=== PATIENT | female | born 1940 | race Caucasian/White ===

== ENCOUNTER 2016-09-10 13:01 | Inpatient (IN) | payer MEDICARE, BC ==
[2016-09-10] MEDS ORDERED: ACETAMINOPHEN TAB 500 MG TAB PO STA (13:29)
[2016-09-10] MEDS ORDERED: IBUPROFEN IV 600 MG in SODIUM CHLORIDE 0.9% 250 ML IV STA (13:29)
[2016-09-10] MEDS ORDERED: IPRATROPIUM-ALBUTEROL 3 ML NEB INHALATION STA ×2 (13:31→16:20)
--- NOTE | 2016-09-10 13:35 | ED ---
General Adult HPI - General Stated complaint: Confusion, NADYA Time Seen by Provider: 09/10/16 13:05 Source: RN notes reviewed - History of Present Illness Initial comments: This is a 76-year-old female who started having some difficulty breathing and feeling weaker 2 days ago and has gotten progressively worse. According to EMS she has also been a little more confused than normal. Patient states she is a past smoker. Patient states she also has received her influenza shot this year. Patient denies any chest pain but she does states she is very short of breath. Patient denies any abdominal pain. Patient denies nausea vomiting or diarrhea. Patient has noticed some frequency with urination but no dysuria or hematuria. Patient denies any headache patient denies numbness weakness. Patient denies lightheadedness dizziness or near syncopal episode. The recent falls or trauma. - Related Data Home Medications Medication Instructions Recorded Confirmed Folic Acid 1 mg PO DAILY 12/24/13 09/10/16 Hydroxychloroquine Sulfate 200 mg PO BID 12/24/13 09/10/16 [Plaquenil] traZODone HCL [Desyrel] 50 mg PO HS PRN 12/24/13 09/10/16 Calcium Citrate/Vitamin D3 1 tab PO DAILY 01/14/14 09/10/16 [Calcium Citrate - Vit D3 Tab] Budesonide-Formot 160-4.5 Mcg 2 puff INHALATION RT-BID 05/20/14 09/10/16 [Symbicort 160-4.5 Mcg Inhaler] Abatacept/Maltose [Orencia] 500 mg IV QMONTH 12/23/14 09/10/16 Acetaminophen [Tylenol Arthritis] 650 mg PO TID PRN 08/16/16 09/10/16 Methotrexate Sodium (Pf) 25 mg SQ MO 08/16/16 09/10/16 [Methotrexate 50 mg/2 ml Vial] Zolpidem [Ambien] 5 mg PO HS PRN 08/16/16 09/10/16 Hydrocodone/Acetaminophen [[place] 1 tab PO Q6HR PRN 09/10/16 09/10/16 5-325] Meloxicam [Mobic] 15 mg PO DAILY 09/10/16 09/10/16 Omeprazole [PriLOSEC] 20 mg PO DAILY 09/10/16 09/10/16 Allergies Allergy/AdvReac Type Severity Reaction Status Date / Time No Known Allergies Allergy Verified 09/10/16 13:32 Review of Systems ROS Statement: Those systems with pertinent positive or pertinent negative responses have been documented in the HPI. ROS Other: All systems not noted in ROS Statement are negative. Past Medical History Past Medical History: COPD Additional Past Medical History / Comment(s): EMPHYSEMA/ARTHRITIS History of Any Multi-Drug Resistant Organisms: None Reported Past Surgical History: Bladder Surgery, Hysterectomy Additional Past Surgical History / Comment(s): Right cataract surgery. Past Anesthesia/Blood Transfusion Reactions: No Reported Reaction Past Psychological History: No Psychological Hx Reported Smoking Status: Current every day smoker Past Alcohol Use History: None Reported Past Drug Use History: None Reported General Exam - General Exam Comments Initial Comments: GENERAL: Patient is well-developed and well-nourished. Patient is nontoxic and well- hydrated and is in mild distress. ENT: Neck is soft and supple. No significant lymphadenopathy is noted. Oropharynx is clear. Moist mucous membranes. Neck has full range of motion without eliciting any pain. EYES: The sclera were anicteric and conjunctiva were pink and moist. Extraocular movements were intact and pupils were equal round and reactive to light. Eyelids were unremarkable. PULMONARY: Patient is extremely wheezing throughout and some diminished breath sounds in the left lung base with some rhonchi.. CARDIOVASCULAR: There is a regular rate and rhythm without any murmurs gallops or rubs. ABDOMEN: Soft and nontender with normal bowel sounds. No palpable organomegaly was noted. There is no palpable pulsatile mass. SKIN: Skin is clear with no lesions or rashes and otherwise unremarkable. NEUROLOGIC: Patient is alert and oriented 2. Cranial nerves II through XII are grossly intact. Motor and sensory are also intact. Normal speech, volume and content. Symmetrical smile. MUSCULOSKELETAL: Normal extremities with adequate strength and full range of motion. No lower extremity swelling or edema. No calf tenderness. LYMPHATICS: No significant lymphadenopathy is noted PSYCHIATRIC: Normal psychiatric evaluation. Course Vital Signs 09/10/16 09/10/16 09/10/16 13:05 13:30 13:45 Temperature 102.9 F H Pulse Rate 110 H 100 Respiratory 24 Rate Blood Pressure 153/71 O2 Sat by Pulse 88 L 89 L Oximetry 09/10/16 09/10/16 09/10/16 13:55 15:32 15:38 Temperature 102 F H Pulse Rate 103 H 94 Respiratory 22 Rate Blood Pressure 131/59 O2 Sat by Pulse 93 L 93 L Oximetry Medical Decision Making - Medical Decision Making EKG shows sinus tachycardia with an occasional PVC at 101 bpm. It was 126 dresses 82 QT interval is 330 QTC is 427. Patient's EKG shows no ST segment elevation or depression or T-wave abdomen is noted. Patient had multiple breathing treatments in the emergency department and she continued to wheeze show minimal improvement. Patient also with steroids emergency department started antibiotics. Patient's x-ray shows no obvious pneumonia however the patient still having difficulty breathing and has a fever so patient will be started on antibiotics. I spoke with Dr. Leos he agreed to admit the patient admitted the patient to consult pulmonology I continued albuterol treatments upstairs and that continued steroid treatments upstairs. - Lab Data Result diagrams: 09/10/16 13:21 09/10/16 13:21 Lab Results 09/10/16 09/10/16 09/10/16 Range/Units 13:20 13:21 13:21 WBC 10.6 (3.8-10.6) k/uL RBC 4.10 (3.80-5.40) m/uL Hgb 13.9 (11.4-16.0) gm/dL Hct 42.1 (34.0-46.0) % MCV 102.7 H (80.0-100.0) fL MCH 33.9 (25.0-35.0) pg MCHC 33.0 (31.0-37.0) g/dL RDW 14.9 (11.5-15.5) % Plt Count 182 (150-450) k/uL Neutrophils % 91 % Lymphocytes % 5 % Monocytes % 3 % Eosinophils % 1 % Basophils % 0 % Neutrophils # 9.6 H (1.3-7.7) k/uL Lymphocytes # 0.6 L (1.0-4.8) k/uL Monocytes # 0.3 (0-1.0) k/uL Eosinophils # 0.1 (0-0.7) k/uL Basophils # 0.0 (0-0.2) k/uL Macrocytosis Slight PT (9.0-12.0) sec INR (<1.1) APTT (22.0-30.0) sec Sodium (137-145) mmol/L Potassium (3.5-5.1) mmol/L Chloride (98-107) mmol/L Carbon Dioxide (22-30) mmol/L Anion Gap mmol/L BUN (7-17) mg/dL Creatinine (0.52-1.04) mg/dL Est GFR (MDRD) Af Amer (>60 ml/min/1.73 sqM) Est GFR (MDRD) Non-Af (>60 ml/min/1.73 sqM) Glucose (74-99) mg/dL Plasma Lactic Acid Wilberto (0.7-2.0) mmol/L Calcium (8.4-10.2) mg/dL Total Bilirubin (0.2-1.3) mg/dL AST (14-36) U/L ALT (9-52) U/L Alkaline Phosphatase (38-126) U/L Total Creatine Kinase 65 (30-135) U/L CK-MB (CK-2) 0.8 (0.0-2.4) ng/mL CK-MB (CK-2) Rel Index 1.2 Troponin I <0.012 (0.000-0.034) ng/mL Total Protein (6.3-8.2) g/dL Albumin (3.5-5.0) g/dL Cortisol ug/dL Urine Color Light Yellow Urine Appearance Clear (Clear) Urine pH 8.0 (5.0-8.0) Ur Specific [place] 1.011 (1.001-1.035) Urine Protein Negative (Negative) Urine Glucose (UA) Negative (Negative) Urine Ketones Negative (Negative) Urine Blood Negative (Negative) Urine Nitrate Negative (Negative) Urine Bilirubin Negative (Negative) Urine Urobilinogen <2.0 (<2.0) mg/dL Ur Leukocyte Esterase Negative (Negative) Influenza Type A RNA (Not Detectd) Influenza Type B (PCR) (Not Detectd) 09/10/16 09/10/16 09/10/16 Range/Units 13:21 13:21 13:21 WBC (3.8-10.6) k/uL RBC (3.80-5.40) m/uL Hgb (11.4-16.0) gm/dL Hct (34.0-46.0) % MCV (80.0-100.0) fL MCH (25.0-35.0) pg MCHC (31.0-37.0) g/dL RDW (11.5-15.5) % Plt Count (150-450) k/uL Neutrophils % % Lymphocytes % % Monocytes % % Eosinophils % % Basophils % % Neutrophils # (1.3-7.7) k/uL Lymphocytes # (1.0-4.8) k/uL Monocytes # (0-1.0) k/uL Eosinophils # (0-0.7) k/uL Basophils # (0-0.2) k/uL Macrocytosis PT 10.3 (9.0-12.0) sec INR 1.0 (<1.1) APTT 19.8 L (22.0-30.0) sec Sodium 136 L (137-145) mmol/L Potassium 4.4 (3.5-5.1) mmol/L Chloride 101 (98-107) mmol/L Carbon Dioxide 28 (22-30) mmol/L Anion Gap 7 mmol/L BUN 26 H (7-17) mg/dL Creatinine 0.70 (0.52-1.04) mg/dL Est GFR (MDRD) Af Amer >60 (>60 ml/min/1.73 sqM) Est GFR (MDRD) Non-Af >60 (>60 ml/min/1.73 sqM) Glucose 78 (74-99) mg/dL Plasma Lactic Acid Wilberto (0.7-2.0) mmol/L Calcium 8.8 (8.4-10.2) mg/dL Total Bilirubin 0.6 (0.2-1.3) mg/dL AST 33 (14-36) U/L ALT 36 (9-52) U/L Alkaline Phosphatase 47 (38-126) U/L Total Creatine Kinase (30-135) U/L CK-MB (CK-2) (0.0-2.4) ng/mL CK-MB (CK-2) Rel Index Troponin I (0.000-0.034) ng/mL Total Protein 6.1 L (6.3-8.2) g/dL Albumin 3.3 L (3.5-5.0) g/dL Cortisol 13 ug/dL Urine Color Urine Appearance (Clear) Urine pH (5.0-8.0) Ur Specific [place] (1.001-1.035) Urine Protein (Negative) Urine Glucose (UA) (Negative) Urine Ketones (Negative) Urine Blood (Negative) Urine Nitrate (Negative) Urine Bilirubin (Negative) Urine Urobilinogen (<2.0) mg/dL Ur Leukocyte Esterase (Negative) Influenza Type A RNA Not Detected (Not Detectd) Influenza Type B (PCR) Not Detected (Not Detectd) 09/10/16 Range/Units 14:00 WBC (3.8-10.6) k/uL RBC (3.80-5.40) m/uL Hgb (11.4-16.0) gm/dL Hct (34.0-46.0) % MCV (80.0-100.0) fL MCH (25.0-35.0) pg MCHC (31.0-37.0) g/dL RDW (11.5-15.5) % Plt Count (150-450) k/uL Neutrophils % % Lymphocytes % % Monocytes % % Eosinophils % % Basophils % % Neutrophils # (1.3-7.7) k/uL Lymphocytes # (1.0-4.8) k/uL Monocytes # (0-1.0) k/uL Eosinophils # (0-0.7) k/uL Basophils # (0-0.2) k/uL Macrocytosis PT (9.0-12.0) sec INR (<1.1) APTT (22.0-30.0) sec Sodium (137-145) mmol/L Potassium (3.5-5.1) mmol/L Chloride (98-107) mmol/L Carbon Dioxide (22-30) mmol/L Anion Gap mmol/L BUN (7-17) mg/dL Creatinine (0.52-1.04) mg/dL Est GFR (MDRD) Af Amer (>60 ml/min/1.73 sqM) Est GFR (MDRD) Non-Af (>60 ml/min/1.73 sqM) Glucose (74-99) mg/dL Plasma Lactic Acid Wilberto 0.8 (0.7-2.0) mmol/L Calcium (8.4-10.2) mg/dL Total Bilirubin (0.2-1.3) mg/dL AST (14-36) U/L ALT (9-52) U/L Alkaline Phosphatase (38-126) U/L Total Creatine Kinase (30-135) U/L CK-MB (CK-2) (0.0-2.4) ng/mL CK-MB (CK-2) Rel Index Troponin I (0.000-0.034) ng/mL Total Protein (6.3-8.2) g/dL Albumin (3.5-5.0) g/dL Cortisol ug/dL Urine Color Urine Appearance (Clear) Urine pH (5.0-8.0) Ur Specific [place] (1.001-1.035) Urine Protein (Negative) Urine Glucose (UA) (Negative) Urine Ketones (Negative) Urine Blood (Negative) Urine Nitrate (Negative) Urine Bilirubin (Negative) Urine Urobilinogen (<2.0) mg/dL Ur Leukocyte Esterase (Negative) Influenza Type A RNA (Not Detectd) Influenza Type B (PCR) (Not Detectd) Critical Care Time Critical Care Time: Yes Total Critical Care Time: 35 Disposition Clinical Impression: Acute bronchitis, COPD with acute exacerbation Disposition: ADMITTED IP TO THIS HOSP Referrals: Tatum Gross MD [Primary Care Provider] - 1-2 days Time of Disposition: 16:24
[2016-09-10 14:09] LABS: Basophils % (A) 0 %; CH 34.2; CHCM 33.5; Eosinophils # (A) 0.1 k/uL (0-0.7); Eosinophils % (A) 1 %; HCT 42.1 % (34.0-46.0); HDW 2.25; HGB 13.9 gm/dL (11.4-16.0); Luc # (Auto) 0.06; Luc % (Auto) 1; Lymphocytes # (A) 0.6 k/uL (1.0-4.8); Lymphocytes % (A) 5 %; MCH 33.9 pg (25.0-35.0); MCV 102.7 fL (80.0-100.0); Macrocytosis Slight; Mean Platelet Volume 6.9; Monocytes # (A) 0.3 k/uL (0-1.0); Monocytes % (A) 3 %; Neutrophils # (A) 9.6 k/uL (1.3-7.7); Neutrophils % (A) 91 %; RDW 14.9 % (11.5-15.5); WBC 10.6 k/uL (3.8-10.6); WBC (Perox) 10.55
[2016-09-10] MEDS: SODIUM CHLORIDE 0.9% 500 ML IV SCH ×2 (14:09→17:24)
[2016-09-10 14:16] LABS: Appearance,Urine Clear (Clear); Bilirubin,Urine Negative (Negative); Glucose,Urine (UA) Negative (Negative); Ketones,Urine Negative (Negative); Leukocyte Esterase,Urine Negative (Negative); Nitrite,Urine Negative (Negative); Protein,Urine Negative (Negative); Specific Gravity,Urine 1.011 (1.001-1.035); UA Billing (MACRO vs. MICRO) CHEM; Urobilinogen,Urine <2.0 mg/dL (<2.0)
[2016-09-10 14:20] LABS: ALT 36 U/L (9-52); AST 33 U/L (14-36); Alkaline Phosphatase 47 U/L (38-126); Anion Gap 7 mmol/L; Blood Urea Nitrogen 26 mg/dL (7-17); Calcium 8.8 mg/dL (8.4-10.2); Carbon Dioxide 28 mmol/L (22-30); Chloride 101 mmol/L (98-107); Glucose 78 mg/dL (74-99); Non-African American GFR(MDRD) >60 (>60 ml/min/1.73 sqM); Potassium 4.4 mmol/L (3.5-5.1); Sodium 136 mmol/L (137-145); Total Bilirubin 0.6 mg/dL (0.2-1.3); Total Protein 6.1 g/dL (6.3-8.2)
[2016-09-10 14:29] LABS: Creatine Kinase 65 U/L (30-135)
[2016-09-10 14:30] LABS: Prothrombin Time 10.3 sec (9.0-12.0)
[2016-09-10 14:42] LABS: Creatine Kinase MB 0.8 ng/mL (0.0-2.4); Troponin I <0.012 ng/mL (0.000-0.034)
--- NOTE | 2016-09-10 14:45 | XR ---
EXAMINATION TYPE: XR chest 2V DATE OF EXAM: 09/10/2016 2:26 PM COMPARISON: Prior chest x-ray 08 August 2016, CT chest first of February 2010 HISTORY: Fever, abnormal chest x-ray TECHNIQUE: Frontal and lateral views of the chest are obtained. FINDINGS: There is no focal air space opacity, pleural effusion, or pneumothorax seen. The cardiac silhouette size is within normal limits. The patient is rotated. There is hyperinflation compatible w ith underlying emphysema. Patient's lung nodules are not seen on plain film with certainty. There are overlying cardiac leads. The osseous structures are intact. IMPRESSION: No acute cardiopulmonary process.
[2016-09-10 14:52] LABS: Partial Thromboplastin Time 19.8 sec (22.0-30.0)
[2016-09-10] MEDS ORDERED: methylPREDNISolone SOD SUCCI 125 MG/2 ML VIAL IV STA (16:20)
[2016-09-10] MEDS ORDERED: PNEUMONIA PROTOCOL UTILIZED 1 EACH MISC PO PRN (16:24)
[2016-09-10] MEDS ORDERED: LEVOFLOXACIN 750MG-D5W PMX 750 MG in DEXTROSE/WATER 1 150ML.BAG IVPB STA (16:24)
[2016-09-10 21:03] LABS: Glucose,Whole Blood 125 mg/dL (75-99)
[2016-09-10 22:50] VITALS: BMI 18.3
[2016-09-11] MEDS: methylPREDNISolone SOD SUCCI 125 MG/2 ML VIAL IV SCH ×2 (00:17→06:50)
[2016-09-11 05:21] VITALS: TEMP 97.8
[2016-09-11 06:39] LABS: Glucose,Whole Blood 126 mg/dL (75-99)
[2016-09-11] MEDS: INSULIN LISPRO (humaLOG) 300 UNIT/3 ML VIAL SQ SCH ×2 (06:47→12:27)
[2016-09-11] MEDS: IPRATROPIUM-ALBUTEROL 3 ML NEB INHALATION PRN ×2 (07:02→11:06)
--- NOTE | 2016-09-11 07:47 | XR ---
EXAMINATION TYPE: XR chest 2V DATE OF EXAM: 09/11/2016 6:57 AM COMPARISON: 09/10/2016 INDICATION: Pneumonia TECHNIQUE: Frontal and lateral views of the chest are obtained. FINDINGS: The heart size is normal. The pulmonary vasculature is normal. There is interval development of a left basilar infiltrate. Small left pleural effusion may be presen t. On the lateral projection small bilateral pleural effusions are present. Findings are worsening ov er the interval. IMPRESSION: 1. Developing posterior pleural effusions and a left basilar infiltrate. Correlate for pneumonia. Con tinued follow-up is recommended.
[2016-09-11 11:31] LABS: Glucose,Whole Blood 117 mg/dL (75-99)
--- NOTE | 2016-09-11 11:32 | P.CNPUL ---
History of Present Illness Consult date: 09/11/16 Reason for consult: dyspnea, other Chief complaint: Shortness of breath, confusion History of present illness: This is a 76-year-old female who was apparently seen in the emergency department for definitive difficulty breathing and also some weakness and some mental status changes. She is not a very good historian and not able to history. She apparently was brought in by EMS because of confusion. She does have a history of underlying COPD. Sees Dr. Gross in [place]. Did not see a lung doctor. She apparently denied any chest pain. Did have shortness of breath. No cough. No phlegm production. No nausea vomiting or diarrhea. She apparently mentions some frequent urination in the emergency department. Denies that with me currently. Feels wonderful. We'll like to be discharged home. Review of Systems A 12 point review of system is positive for shortness of breath and confusion with mental status changes and weakness. Again not a particularly good historian. It's hard to validate these complaints. Past Medical History Past Medical History: COPD Additional Past Medical History / Comment(s): EMPHYSEMA/ARTHRITIS History of Any Multi-Drug Resistant Organisms: None Reported Past Surgical History: Bladder Surgery, Hysterectomy Additional Past Surgical History / Comment(s): Right cataract surgery. Past Anesthesia/Blood Transfusion Reactions: No Reported Reaction Past Psychological History: No Psychological Hx Reported Smoking Status: Current every day smoker Past Alcohol Use History: None Reported Past Drug Use History: None Reported Medications and Allergies Home Medications Medication Instructions Recorded Confirmed Type Folic Acid 1 mg PO DAILY 12/24/13 09/10/16 History Hydroxychloroquine Sulfate 200 mg PO BID 12/24/13 09/10/16 History [Plaquenil] traZODone HCL [Desyrel] 50 mg PO HS PRN 12/24/13 09/10/16 History Calcium Citrate/Vitamin D3 1 tab PO DAILY 01/14/14 09/10/16 History [Calcium Citrate - Vit D3 Tab] Budesonide-Formot 160-4.5 Mcg 2 puff INHALATION RT-BID 05/20/14 09/10/16 History [Symbicort 160-4.5 Mcg Inhaler] Abatacept/Maltose [Orencia] 500 mg IV QMONTH 12/23/14 09/10/16 History Acetaminophen [Tylenol Arthritis] 650 mg PO TID PRN 08/16/16 09/10/16 History Methotrexate Sodium (Pf) 25 mg SQ MO 08/16/16 09/10/16 History [Methotrexate 50 mg/2 ml Vial] Zolpidem [Ambien] 5 mg PO HS PRN 08/16/16 09/10/16 History Hydrocodone/Acetaminophen [[place] 1 tab PO Q6HR PRN 09/10/16 09/10/16 History 5-325] Meloxicam [Mobic] 15 mg PO DAILY 09/10/16 09/10/16 History Omeprazole [PriLOSEC] 20 mg PO DAILY 09/10/16 09/10/16 History Allergies Allergy/AdvReac Type Severity Reaction Status Date / Time No Known Allergies Allergy Verified 09/10/16 13:32 Physical Exam Osteopathic Statement: *. No significant issues noted on an osteopathic structural exam other than those noted in the History and Physical/Consult. Vitals: Vital Signs Temp Pulse Pulse Pulse Resp BP BP 09/11/16 11:16 98 09/11/16 11:06 96 09/11/16 08:00 97 19 131/70 09/11/16 07:16 98 09/11/16 07:02 96 09/11/16 04:00 97.8 F 87 18 131/73 09/11/16 00:00 97.0 F L 86 18 133/67 09/10/16 18:38 98.8 F 89 22 133/60 09/10/16 18:17 84 09/10/16 17:38 88 22 138/62 09/10/16 17:05 99.8 F H 09/10/16 16:38 92 22 133/55 Pulse Ox 09/11/16 11:16 09/11/16 11:06 09/11/16 08:00 90 L 09/11/16 07:16 09/11/16 07:02 09/11/16 04:00 94 L 09/11/16 00:00 92 L 09/10/16 18:38 92 L 09/10/16 18:17 09/10/16 17:38 92 L 09/10/16 17:05 09/10/16 16:38 94 L Intake and Output 09/10/16 09/11/16 09/11/16 22:59 06:59 14:59 Intake Total 850 180 Output Total 200 Balance 650 180 Intake: Intake, IV Titration 650 Amount Levofloxacin 750Mg-D5w 150 Pmx 750 mg In Dextrose/ Water 1 150ml.bag @ 100 mls/hr IVPB ONCE STA Rx#: [id number] Sodium Chloride 0.9% 500 500 ml @ 1000 mls/hr IV Q35M [facility] Rx#:[id number] Oral 200 180 Output: Urine 200 Other: Voiding Method Toilet Urinal # Voids 1 Weight 53.07 kg 54.8 kg No acute distress, oriented 3. Sitting on the edge of the bed. Currently doing a breathing treatment. HEENT examination is grossly unremarkable. Mucous membranes are moist. There are no oral lesions. Neck is supple. Full range of motion. No adenopathy. Cardiovascular examination reveals regular rhythm rate. S1-S2 normal. No murmur. Lungs are relatively clear breath sounds are diminished. This no wheezes or rhonchi. No crackles. Abdomen soft bowel sounds are heard. Extremities are intact. Results - Laboratory Findings CBC and BMP: 09/10/16 13:21 09/10/16 13:21 PT/INR, D-dimer PT 10.3 sec (9.0-12.0) 09/10/16 13:21 INR 1.0 (<1.1) 09/10/16 13:21 Abnormal lab findings: Abnormal Labs 09/10/16 09/11/16 21:01 06:37 POC Glucose (mg/dL) 125 H 126 H - Diagnostic Findings Chest x-ray: image reviewed (Chest x-ray my opinion is most consistent with some COPD. There may be some minimal basilar atelectasis and/or small effusion on the left side. Not really impressive in my opinion.) Assessment and Plan (1) COPD with acute exacerbation Status: Acute Plan: Plan In my opinion this patient could be discharged home. No clearcut evidence of anything significant going on. I may have had a mild COPD exacerbation with some mild transient hypoxemia which caused her confusion. Chest x-ray is not well impressive. The radiologist apparently suspects some minimal infiltrate at the left lung base. She could certainly be treated with outpatient antibiotic. She should follow-up with Dr. Gross. No additional recommendations are made. Time with Patient: Greater than 30
[2016-09-11 12:44] LABS: Hemoglobin A1C 6.6 % (4.2-6.1)
[2016-09-11 12:56] VITALS: BP 121/57; PULSE 101; RESP 18
--- NOTE | 2016-09-11 15:27 | HP ---
DATE OF ADMISSION: CHIEF COMPLAINT: Shortness of breath. HISTORY OF PRESENT ILLNESS: This 76-year-old woman with A past medical history of COPD, history of DJD, history of bladder surgery, hysterectomy, history of right cataracts removed being followed by Dr. Gross in the outpatient setting was complaining of increase in shortness of breath. Because of increased shortness of breath, patient came to [facility], admitted for further evaluation and treatment. Dr. Garcia's evaluation is ongoing at this time. The chest x-ray showed a possible left basilar infiltrate and some developing posterior pleural effusion also. There is no history of fever, chills or rigors. There is no history of headache, loss of consciousness or seizures. PAST MEDICAL HISTORY: History of COPD, history of bladder surgery, history of hysterectomy. History of nicotine dependence. Medications prior to admission include home medications are: 1. Prilosec 20 mg p.o. daily. 2. [place] 5 mg q.6 p.r.n. 3. Vitamin D3. 4. Symbicort 160/4.5 two puffs b.i.d. 5. Tylenol. 6. Orencia. 7. Methotrexate. 8. Mobic. 9. Trazodone. 10. Ambien. 11. Plaquenil. 12. Folic acid. 13. Prednisone. 14. Habitrol. 15. Levaquin. 16. DuoNeb q.i.d. ALLERGIES: None. FAMILY HISTORY: No history of heart disease or strokes in the family. SOCIAL HISTORY: History of smoking, no history of alcohol intake. REVIEW OF SYSTEMS: ENT: No diminished vision, no diminished hearing. CARDIOVASCULAR: No angina or palpitation. RESPIRATORY: No cough. GI: No nausea. : No dysuria. NERVOUS SYSTEM: No numbness or weakness. ALLERGY/IMMUNOLOGY: No asthma or hayfever. MUSCULOSKELETAL: As mentioned earlier. DERMATOLOGY: Negative. ENDOCRINE: As mentioned earlier. CONSTITUTIONAL: As mentioned earlier. PSYCHIATRY: As mentioned earlier. PHYSICAL EXAM: Patient is alert and oriented x3. Pulse 101, blood pressure 121/57, respirations 18, temperature 98, pulse ox is 91% on 3 L. HEENT: Conjunctivae normal, oral mucosa moist. Neck is no jugular venous distention. No carotid bruit, no lymph node enlargement. CARDIOVASCULAR SYSTEM: S1, S2, muffled. RESPIRATORY: Breath sounds diminished at the bases, bilateral scattered rhonchi, no crackles. Breathing was markedly increased. Abdomen is soft, nontender. No mass palpable. EXTREMITIES: Legs no edema, no swelling. NERVOUS SYSTEM: Higher functions as mentioned earlier. Moves all 4 limbs. No focal motor deficits. SKIN: No rash, ulcers or bleeding. Labs at this time shows chest x-ray noted. Accu-Cheks are noted. MCV 102.7, sodium 136. ASSESSMENT: 1. Chronic obstructive pulmonary disease acute exacerbation, with left lower pneumonia, possibly gram-negative with acute respiratory failure. 2. Hyponatremia. 3. Increased MCV. 4. History of nicotine dependence, continued ongoing. 5. Hypoalbuminemia, mild. 6. Moderate severe protein calorie malnutrition with BMI 18.9. 7. History of bladder surgery. 8. History of cataract surgery. 9. History of chronic obstructive pulmonary disease. 10. History of degenerative joint disease. RECOMMENDATION: In this 76-year-old woman who presented with multiple complex medical issues, will monitor the patient closely. Continue with the current medications, continue with the steroids, continue with the empiric antibiotics and bronchodilators. Consult Pulmonary. Guarded prognosis. Further recommendations to follow. A copy of this report will be forwarded to Dr. Gross who is the primary physician.
[2016-09-11] MEDS ORDERED: LEVOFLOXACIN 750 MG TAB PO SCH (17:00)
[2016-09-11] MEDS ORDERED: SYMBICORT 160-4.5 MCG INHALER INHALATION SCH (20:00)
--- NOTE | 2016-09-12 12:26 | DS ---
DATE OF ADMISSION: 09/10/2016 DATE OF DISCHARGE: 09/11/2016 DATE OF SERVICE: 09/11/2016 FINAL DIAGNOSES: 1. Chronic obstructive pulmonary disease, acute exacerbation with left lower pneumonia, possibly gram-negative with acute respiratory failure, hypoxic, present on admission. 2. Chronic obstructive pulmonary disease. 3. History of degenerative joint disease. 4. History of bladder surgery. 5. History of continuing ongoing nicotine dependence. 6. Increased MCV. 7. Hyponatremia, mild, possibly hypovolemic. 8. Increased random blood sugar. DISCHARGE DISPOSITION: The patient will be discharged in stable condition with guarded prognosis. HISTORY OF PRESENT ILLNESS: This is a 76-year-old woman with the past medical history of multiple medical problems, admitted with COPD exacerbation as well as pneumonia, treated with bronchodilators and antibiotics, improved significantly. Dr. Garcia saw the patient. Recommended outpatient followup. On exam, vitals are stable. CARDIOVASCULAR SYSTEM: S1, S2, muffled. RESPIRATORY: A few scattered rhonchi. ABDOMEN: Soft. NERVOUS SYSTEM: No focal deficits. Discharge advice: 1. Diet is cardiac. 2. Activity limited until followup. 3. Follow up with Dr. Gross in 1 to 2 days. 4. Follow up with Pulmonary as recommended. Medications are: 1. Orencia 500 mg as before. 2. Tylenol Arthritis 650 t.i.d. p.r.n. 3. Symbicort 160/4.5 two puffs b.i.d. 4. Calcium with vitamin D 1 p.o. daily. 5. Folic acid 1 mg daily. 6. Hydrocodone 1 tablet q.6 p.r.n. 7. Plaquenil 200 mg p.o. b.i.d. 8. Albuterol, Atrovent q.i.d. and p.r.n. 9. Levaquin 750 p.o. daily for 5 days. 10. Mobic 15 mg p.o. daily. 11. Methotrexate 25 mg subQ Sunday. 12. Habitrol 14 daily. 13. Prilosec 20 mg p.o. daily. 14. Ambien 5 mg q.h.s. p.r.n. 15. Prednisone taper that will be 40 mg daily for 3 days, 30 for 3 days, 20 for 3 days, 10 for 3 days and then stop. 16. Desyrel 50 mg q.h.s. p.r.n.
== END 2016-09-11 15:02 | disposition home or self-care (01) | DRG 190 ==
LOC: EC 13:01 → 4MS4W 16:24 → 6SEL 17:29
PROVIDERS: ADMIT Internal Medicine; ATTEND Internal Medicine
DX: J44.0 Chronic obstructive pulmonary disease with (acute) lower respiratory infection (principal); J15.6 Pneumonia due to other Gram-negative bacteria; J96.01 Acute respiratory failure with hypoxia; E43 Unspecified severe protein-calorie malnutrition; J44.1 Chronic obstructive pulmonary disease with (acute) exacerbation; Z68.1 Body mass index [BMI] 19.9 or less, adult; E87.1 Hypo-osmolality and hyponatremia; F17.200 Nicotine dependence, unspecified, uncomplicated; E86.1 Hypovolemia; M19.90 Unspecified osteoarthritis, unspecified site; Z90.710 Acquired absence of both cervix and uterus; I49.3 Ventricular premature depolarization; Z98.41 Cataract extraction status, right eye; Z79.1 Long term (current) use of non-steroidal anti-inflammatories (NSAID); Z79.51 Long term (current) use of inhaled steroids; Z79.899 Other long term (current) drug therapy
CPT/HCPCS: 36415; 71020; 80053; 81003; 82533; 82550; 82553; 83036; 83605; 84484; 85025; 85610; 85730; 87040; 87086; 87502; 93005; 94640; 96361; 96365; 96367; 96375; 99291